=== PATIENT | male | born 1970 | race African-American/Black ===

== ENCOUNTER 2016-12-30 18:40 | Emergency (ER) | payer MEDICARE, MEDICAID ==
[~2016-12-30] VITALS: Ht 175.3 cm; Wt 89.0 kg
[~2016-12-30 18:40] MED LIST: CARVEDILOL PO; CLONIDINE; HYDRALAZINE; LASIX; OXYCODONE PO; RENVELA
[2016-12-30 19:48] VITALS: BP 180/130
[2016-12-30 20:11] LABS: INR 1.1; PROTHROMBIN TIME 11.2 sec
[2016-12-30 20:21] LABS: CARBON DIOXIDE 22 mEq/L (21-32); CHLORIDE 96 mEq/L (98-107); TROPONIN I 0.12 ng/mL (0.00-0.04)
[2016-12-31] MEDS ORDERED: HYDR-3735 PO (18:50)
[2016-12-31] MEDS ORDERED: NIFE30TA83 PO (18:50)
[2016-12-31] MEDS ORDERED: CLON0.3T PO (18:50)
[2017-01-02] MEDS ORDERED: NIFE30TA83 PO (00:34)
== END 2016-12-30 22:31 | disposition left against medical advice (07) ==
LOC: CANBEDREQ 21:54 → ER 22:08
DX: E87.70 Fluid overload, unspecified (principal); I13.2 Hypertensive heart and chronic kidney disease with heart failure and with stage 5 chronic kidney disease, or end stage renal disease; N18.6 End stage renal disease; I50.9 Heart failure, unspecified; F17.200 Nicotine dependence, unspecified, uncomplicated; Z99.2 Dependence on renal dialysis; Z88.6 Allergy status to analgesic agent
CPT/HCPCS: 36415; 71010; 80053; 83880; 84484; 85610; 93005; 99285

== ENCOUNTER 2017-11-06 19:41 | Emergency (ER) | payer MEDICARE, MEDICAID ==
[~2017-11-06] VITALS: Ht 175.3 cm; Wt 86.0 kg
[~2017-11-06 19:41] MED LIST changes: +CLON0.3T PO; -CLONIDINE; +HYDR-3735 PO; -HYDRALAZINE; -LASIX; +NIFE30TA83 PO; -RENVELA
[2017-11-06 19:44] VITALS: BP 180/120
== END 2017-11-06 21:14 | disposition left against medical advice (07) ==
LOC: ER 19:41
DX: Z53.21 Procedure and treatment not carried out due to patient leaving prior to being seen by health care provider (principal); I13.0 Hypertensive heart and chronic kidney disease with heart failure and stage 1 through stage 4 chronic kidney disease, or unspecified chronic kidney disease; N18.6 End stage renal disease; I50.9 Heart failure, unspecified; Z99.2 Dependence on renal dialysis